=== PATIENT | male | born 1940 | race American Indian/Alaskan Native ===

== ENCOUNTER 2018-10-29 11:04 | Day surgery (SDC) | payer MEDICARE, OTHER ==
[~2018-10-29 11:04] MED LIST: GONAK OD ONE; GONAK ONE; IOPIDINE OD ONE; IOPIDINE ONE; ISOPTO CARPINE ONE; TETRACAINE 0.5% OD ONE; TETRACAINE 0.5% ONE
[2018-10-29 11:31] VITALS: BP 148/84
[2018-10-29] MEDS ORDERED: IOPIDINE OD ONE (11:33)
[2018-10-29] MEDS ORDERED: ISOPTO CARPINE OD ONE (11:33)
[2018-10-29] MEDS ORDERED: TETRACAINE 0.5% OD ONE (12:00)
== END 2018-10-29 11:05 | disposition home or self-care (01) ==
LOC: OR 11:04
PROVIDERS: ATTEND Ophthalmology
DX: H26.491 Other secondary cataract, right eye (principal); H40.89 Other specified glaucoma; E78.00 Pure hypercholesterolemia, unspecified; I10 Essential (primary) hypertension; G47.30 Sleep apnea, unspecified; K21.9 Gastro-esophageal reflux disease without esophagitis; M19.90 Unspecified osteoarthritis, unspecified site; Z72.89 Other problems related to lifestyle; Z98.890 Other specified postprocedural states; Z79.899 Other long term (current) drug therapy

== ENCOUNTER 2018-11-26 11:17 | Day surgery (SDC) | payer MEDICARE, OTHER ==
[2018-11-26 11:46] VITALS: BP 124/68
[2018-11-26] MEDS ORDERED: IOPIDINE ONE (11:48)
[2018-11-26] MEDS ORDERED: MYDRIACYL ONE (11:48)
[2018-11-26] MEDS ORDERED: NEOFRIN ONE (11:48)
[2018-11-26] MEDS ORDERED: TETRACAINE 0.5% OS ONE (11:50)
[2018-11-26] MEDS ORDERED: GONAK OS ONE (11:50)
[2018-11-26] MEDS ORDERED: ISOPTO CARPINE OS ONE (11:50)
[2018-11-26] MEDS ORDERED: IOPIDINE OS ONE (11:50)
[2018-11-26] MEDS ORDERED: ISOPTO CARPINE ONE (11:56)
[2018-11-26] MEDS ORDERED: TETRACAINE 0.5% ONE (11:56)
[2018-11-26] MEDS ORDERED: GENTAMICIN 0.3% OPHTH SOLN ONE (11:57)
[2018-11-26] MEDS ORDERED: GONAK ONE (11:58)
== END 2018-11-26 11:18 | disposition home or self-care (01) ==
LOC: OR 11:17
PROVIDERS: ATTEND Ophthalmology
DX: H40.20X0 Unspecified primary angle-closure glaucoma, stage unspecified (principal); H26.491 Other secondary cataract, right eye; I10 Essential (primary) hypertension; G47.30 Sleep apnea, unspecified; K21.9 Gastro-esophageal reflux disease without esophagitis; M19.90 Unspecified osteoarthritis, unspecified site; Z72.89 Other problems related to lifestyle; Z98.890 Other specified postprocedural states; Z79.899 Other long term (current) drug therapy